=== PATIENT | male | born 1980 | race Caucasian/White ===

== ENCOUNTER 2021-12-12 18:28 | Emergency (ER) | payer OTHER ==
[~2021-12-12] VITALS: Ht 167.6 cm; Wt 59.7 kg
[2021-12-12] MEDS ORDERED: GLIM2TAB29 (18:48)
[2021-12-12] MEDS ORDERED: HYDR-3490 (18:48)
[2021-12-12] MEDS ORDERED: LISI10TA22 (18:48)
[2021-12-12] MEDS ORDERED: METF-838 (18:48)
[2021-12-12] MEDS ORDERED: GI COCKTAIL 50ML BTL(HYOSCYAMINE/MAALOX/LIDOCAINE VISCOUS)(1:3:1) PO ONE (23:50)
[2021-12-12] MEDS ORDERED: KETOROLAC 30 MG/ML 1ML VIAL IV ONE (23:50)
[2021-12-12] MEDS ORDERED: PANTOPRAZOLE 40MG VIAL IV ONE (23:50)
[2021-12-12] MEDS ORDERED: NS 1,000 ML IV ONE (23:50)
[2021-12-12] MEDS ORDERED: SUCRALFATE 1 GM TAB PO ONE (23:50)
[2021-12-12] MEDS ORDERED: GABAPENTIN 300 MG CAP PO ONE (23:50)
[2021-12-12] MEDS ORDERED: ONDANSETRON 4MG/2ML VIAL IV ONE (23:50)
[2021-12-13] MEDS ORDERED: ISOVUE-370 76% 100ML VIAL As Ordered ONE (00:14)
[2021-12-13 00:31] LABS: ALBUMIN 4.2 GM/DL (3.2-5.2); BILIRUBIN,DIRECT 0.4 MG/DL (0.0-0.2); BILIRUBIN,TOTAL 1.7 MG/DL (0.2-1.0); TOTAL PROTEIN 6.8 GM/DL (6.4-8.2)
[2021-12-13 00:33] LABS: BASO % 0.5 % (0.0-1.0); EOS % 0.2 % (0.0-3.0); HEMATOCRIT 46.2 % (42.0-52.0); HEMOGLOBIN 16.9 g/dl (13.5-17.5); LYMPH # 2.8 10^3/uL (1.5-5.0); LYMPH % 33.9 % (24.0-44.0); MEAN CORPUSCULAR HEMOGLOBIN 31.8 pg (27.0-33.0); MEAN CORPUSCULAR VOLUME 86.8 fl (80.0-96.0); MONO # 0.9 10^3/uL (0.0-0.8); MONO % 10.3 % (2.0-8.0); NEUTROPHILS # 4.5 10^3/uL (1.5-8.5); NEUTROPHILS % 54.9 % (36.0-66.0); PLATELET COUNT, AUTOMATED 224 10^3/uL (150-450); RED BLOOD COUNT 5.32 10^6/uL (4.30-6.10); WHITE BLOOD COUNT 8.2 10^3/uL (4.0-10.0)
[2021-12-13 00:37] LABS: MEAN CORPUSCULAR HGB CONC 36.6 g/dl (32.0-36.5)
[2021-12-13] MEDS ORDERED: ONDA4TAB6 PO (01:57)
[2021-12-13] MEDS ORDERED: NEUR300C PO (01:57)
[2021-12-13] MEDS ORDERED: OMEP40CA4 PO (01:57)
[2021-12-13] MEDS ORDERED: CARA1TAB6 PO (01:57)
[2021-12-13 02:09] VITALS: BP 132/86
== END 2021-12-13 02:10 | disposition home or self-care (01) ==
LOC: M ED 18:28
DX: E11.65 Type 2 diabetes mellitus with hyperglycemia (principal); R63.4 Abnormal weight loss; M79.662 Pain in left lower leg; M54.50 Low back pain, unspecified; I10 Essential (primary) hypertension; E78.5 Hyperlipidemia, unspecified; Z79.84 Long term (current) use of oral hypoglycemic drugs; Z79.899 Other long term (current) drug therapy
CPT/HCPCS: 74177; 80047; 80076; 83690; 85025; 93971; 96361; 96374; 96375; 99284; C9113; J1885; J2405; Q9967